=== PATIENT | female | born 1970 | race Caucasian/White ===

== ENCOUNTER 2017-06-01 17:35 | Inpatient (IN) | payer OTHER ==
[~2017-06-01] VITALS: Ht 162.6 cm; Wt 54.4 kg
--- NOTE | 2017-06-01 18:06 | ED GENERAL ADULT ---
History of Present Illness General Chief Complaint: ETOH/Drug Related Complaint Stated Complaint: REQUESTING HIGHWATCH Source: patient Exam Limitations: no limitations Vital Signs & Intake/Output Vital Signs & Intake/Output Vital Signs Date Time Temp Pulse Resp B/P B/P Pulse O2 O2 Flow FiO2 Mean Ox Delivery Rate 06/02 0203 98.9 94 20 119/70 06/02 0203 98.9 94 20 119/70 99 Room Air 06/01 2358 98.9 88 18 110/65 06/01 2358 98.9 88 22 110/65 99 Room Air 06/01 2124 98.8 88 18 146/82 06/01 2123 98.8 88 18 146/82 100 Room Air 06/01 160/90 99 Room Air 06/01 20 160/90 06/01 1850 97.6 108 18 155/98 06/01 1836 97.6 108 18 155/98 98 Room Air 06/01 1741 97.5 106 18 160/98 98 Room Air ED Intake and Output 06/02 0000 06/01 1200 Intake Total 150 Output Total 200 Balance -50 Intake, Oral 150 Output, Urine 200 Patient 120 lb Weight Weight Reported by Patient Measurement Method Allergies Coded Allergies: No Known Allergies (06/01/17) Triage Note: PT SENT IN BY HIGHWATCH FOR CLEARANCE. PT LAST DRANK LAST EVENING. PT DENIES DRUG USE. Triage Nurses Notes Reviewed? yes Onset: Gradual Duration: worse persistent since (sveral months) Timing: recent history Injury Environment: home Severity: moderate No Modifying Factors: none : No Patient currently breastfeeds: No HPI: Patient is a 46-year-old female presenting to the emergency department for clearance prior to going to [facility] for alcohol detox. Patient reports that she drinks "a few vodka lemonade" 2-3 times a week. Patient reports that her family is concerned and wants her to get detoxed. No history of withdrawal seizures. Patient does report that she feels anxious when she does not drink. Her last drink was yesterday evening. Denies any drug use. Positive cigarette smoker daily. Denies any suicidal or homicidal ideation. Denies any hallucinations. No nausea or vomiting fevers or chills chest pain or shortness of breath. (Joshua MORENO,Yue) Past History Travel History Traveled to [place] past 21 day No Medical History Any Pertinent Medical History? see below for history Surgical History Surgical History: non-contributory Psychosocial History What is your primary language Nepalese Tobacco Use: Current Daily Use Daily Tobacco Use Amount/Type: => 5 Cigarettes daily ETOH Use: alcoholic Illicit Drug Use: denies illicit drug use Family History Hx Contributory? No (Yue Sung) Review of Systems Review of Systems Constitutional: Reports: no symptoms. Comments Review of systems: See HPI, All other systems negative. Constitutional, no chills fever or weight loss HEENT: No visual changes no sore throat no congestion Cardiovascular: No chest pain ,palpitation , orthopnea or ankle swelling Skin, no jaundice no rashes Respiratory: No dyspnea cough sputum or hemoptysis GI: No nausea no vomiting : No dysuria No hematuria Muscle skeletal: no back pain, no neck pain, Neurologic: No numbness no confusion, no headaches Psych: Positive stress and anxiety Heme/endocrine: No bruising no bleeding no polyuria or polydipsia Immunology: No splenectomy or history of AIDS (Yue Sung) Physical Exam Physical Exam General Appearance: well developed/nourished, no apparent distress, alert, awake , comfortable Comments: Well-developed well-nourished person in no acute distress HEENT: Atraumatic ,normocephalic. Neck: Normal inspection Back: Nontender Cardiovascular: Regular rate and rhythms no murmurs rubs or gallops, normal JVP Respiratory: Chest nontender. No respiratory distress.breath sounds clear to auscultation bilaterally Extremity: No edema Neuro: Alert oriented x3 Skin: No appreciable rash on exposed skin, skin is warm and dry. Psych: depressed mood, memory and judgment is normal. Core Measures ACS in differential dx? No CVA/TIA Diagnosis: No Sepsis Present: No Sepsis Focused Exam Completed? No (Yue Sung) Progress Differential Diagnoses I considered the following diagnoses in my evaluation of the patient: Alcohol intoxication, alcohol abuse, polysubstance abuse, generalized anxiety disorder, major depressive disorder Plan of Care: Orders Procedure Date/time Status Regular Diet 06/02 B Active Patient Data 06/02 033 Active Add-on Test (ER Only) 06/02 322 Active OXYGEN SETUP (GEN) 06/02 319 Active Saline Lock 06/02 319 Active Admit to inpatient 01/21 0320 Active Vital Signs 01/21 0320 Active Activity/Ambulation 06/02 0320 Active Code Status 06/02 0320 Active Add-on Test (ER Only) 06/02 0316 Active ARTERIAL BLOOD GAS (GEN) 06/02 0255 Complete MIXED VENOUS BLOOD GAS (GEN) 06/02 0200 Active COMPREHENSIVE METABOLIC PANEL 06/02 0200 Complete LACTIC ACID 06/02 0141 Complete Lab Add-on Test 06/02 UNK Active LACTIC ACID 06/01 2241 Complete Add-on Test (ER Only) 06/01 2233 Active MIXED VENOUS BLOOD GAS (GEN) 06/01 2047 Active Add-on Test (ER Only) 06/01 1947 Active Telemetry/Data Warehouse Manager 06/01 1947 Active EKG 06/01 1947 Active URINALYSIS 06/01 1945 Complete SERUM OSMOLALITY 06/01 1909 Active ACETONE 06/01 1909 Active Intake & Output 06/01 1843 Active CIWA 06/01 1805 Active URINE DRUG SCREEN FOR ER ONLY 06/01 1805 Complete MAGNESIUM 06/01 1805 Active LIPASE 06/01 1805 Active ETHANOL 06/01 1805 Active COMPREHENSIVE METABOLIC PANEL 06/01 1805 Active CBC WITHOUT DIFFERENTIAL 06/01 1805 Complete Current Medications Sig/Henry Start time Last Medication Dose Stop Time Status Admin Lactated Ringer's 1,000 ML Q6H 06/02 0330 UNVr 06/02 (Lactated Ringers) 0328 Ondansetron HCl 4 MG ONCE ONE 06/02 0330 UNVr 06/02 (Zofran) 06/02 033 0332 Sodium Bicarbonate 100 MEQ CONTINOUS INFUSION 06/02 0300 CANr (Sodium Bicarbonate 8.4%) Dextrose/Water 1,000 ML (D5W 1000) Nicotine 21 MG DAILY 06/01 192 UNVr 06/01 (Nicoderm) 194 Laboratory Tests 06/02/17 0305: pH 7.21 *L, pCO2 16 L, pO2 125 H, HCO3 6.3 L, ABG O2 Sat (Measured) 97.0, P- 50 (Temp Corrected) Y, Carboxyhemoglobin 0.1 L, O2 Concentration % RA, Temperature 98.9, Phlebotomy Draw Site RIGHT RADIAL 06/02/17 0204: Lactic Acid 0.6 L 06/02/17 0204: Anion Gap 24 H, Estimated GFR > 60, BUN/Creatinine Ratio 7.5, Glucose 72, Calcium 7.2 L, Total Bilirubin 0.6, AST 59 H, ALT 52, Alkaline Phosphatase 74, Total Protein 6.4, Albumin 3.7, Globulin 2.7, Albumin/Globulin Ratio 1.4 06/01/17 230: Lactic Acid 1.0 06/01/172104: Bicarbonate Actual 10 L, Mixed VBG pH 7.14 L, Mixed VBG pCO2 29 L, Mixed VBG O2 Saturation 42, Carboxyhemoglobin 1.4 L 06/01/171944: Urine Opiates Screen < 100.00, Methadone Screen < 40, Barbiturate Screen < 60, Ur Phencyclidine Scrn < 6.00, Amphetamines Screen 137, U Benzodiazepines Scrn < 85, Urine Cocaine Screen < 50, Urine Cannabis Screen < 5.00, Urinalysis LIGHT H , Urine Color YEL, Urine Clarity CLEAR, Urine pH 6.0, Ur Specific Delta >= 1.030, Urine Protein 100 H, Urine Ketones >=80, Urine Nitrite NEG, Urine Bilirubin NEG@ICTO, Urine Urobilinogen 0.2, Ur Leukocyte Esterase NEG, Ur Microscopic SEDIMENT EXAMINED, Urine RBC RARE, Urine WBC RARE, Ur Epithelial Cells FEW, Urine Bacteria FEW H, Hyaline Casts RARE H, Urine Hemoglobin SMALL H, Urine Glucose NEG 06/01/171908: Anion Gap 38 H, Estimated GFR > 60, BUN/Creatinine Ratio 11.7, Glucose 93, Serum Osmolality 309 H, Calcium 9.9, Magnesium 2.1, Total Bilirubin 0.8, AST 98 H, ALT 70 H, Alkaline Phosphatase 110, Total Protein 9.8 H, Albumin 6.0 H, Globulin 3.8, Albumin/Globulin Ratio 1.6, Lipase 166, CBC w Diff NO MAN DIFF REQ , RBC 3.99 L, MCV 105.3 H, MCH 34.9 H, RDW 15.4 H, MPV 8.5, Gran % 83.2 H, Lymphocytes % 8.5 L, Monocytes % 8.0, Eosinophils % 0.1, Basophils % 0.2, Absolute Granulocytes 7.4 H, Absolute Lymphocytes 0.8 L, Absolute Monocytes 0.7 H, Absolute Eosinophils 0, Absolute Basophils 0, PUBS MCHC 33.1, Serum Alcohol < 10.0, Acetone Level Pending Initial ED EKG: NSR (91 bpm) Hand-Off Endorsed To: Magan Epperson MD Endorsed Time: 99 Pending: labs (Yue Sung) Departure Departure Condition: Stable Referrals: Aman ARREDONDO,Gamaliel Olsen (PCP/Family) Departure Forms: Customer Survey General Discharge Information (Yue Sung) Departure Time of Disposition: 324 Disposition: STILL A PATIENT Clinical Impression Primary Impression: Metabolic acidosis with increased anion gap and accumulation of organic acids Secondary Impressions: Alcohol withdrawal Qualifiers: Complication of substance-induced condition: with unspecified complication Qualified Code: F10.239 - Alcohol dependence with withdrawal, unspecified Hyperkalemia Admission Note Spoke With: Ibis Galvan MD Documentation of Exam: Documentation of any treatments & extenuating circumstances including Concerns Regarding Discharge (functional status, medication knowledge or non-compliance, living conditions, etc.) that warrant an admission rather than observation: Serial lab exam medication adjustment benzodiazepine to prevent alcohol withdrawal toxic alcohol evaluation continuing care discharge PA/C++ QUANT DEVELOPER Co-Sign Statement Statement: ED Attending supervision documentation- x I saw and evaluated the patient. I have also reviewed all the pertinent lab results and diagnostic results. I agree with the findings and the plan of care as documented in the PA's/C++ QUANT DEVELOPER's documentation. Severe metabolic / alcoholic ketoacidosis. [] I have reviewed the ED Record and agree with the PA's/C++ QUANT DEVELOPER's documentation. [] Additions or exceptions (if any) to the PAs/C++ QUANT DEVELOPER's note and plan are summarized below: [] (Magan Epperson MD) Critical Care Note Critical Care Note Critical Care Time: non-applicable (Yue Sung) Critical Care Note Critical Care Time: 30-74 min (40) (Magan Epperson MD)
[2017-06-01 18:50] VITALS: BP 155/98
[2017-06-01 19:19] LABS: ABSOLUTE BASOPHIL COUNT 0 /CUMM (0.0-0.2); ABSOLUTE EOSINOPHIL COUNT 0 /CUMM (0.0-0.7); ABSOLUTE GRANULOCYTE CT 7.4 /CUMM (1.4-6.5); ABSOLUTE LYMPH COUNT 0.8 /CUMM (1.2-3.4); ABSOLUTE MONOCYTE COUNT 0.7 /CUMM (0.10-0.60); BASOPHIL % 0.2 % (0.0-2.0); EOSINOPHIL % 0.1 % (0-5); MEAN CORPUSCULAR HGB 34.9 PG (27.0-31.0); MEAN CORPUSCULAR HGB CONC 33.1 G/DL (33.0-37.0); MEAN CORPUSCULAR VOLUME 105.3 FL (81.0-99.0); MEAN PLATELET VOLUME 8.5 FL (7.4-10.4); PLATELET COUNT 172 /CUMM (130-400); RBC DISTRIBUTION WIDTH 15.4 % (11.5-14.5); RED BLOOD CELL CT 3.99 /CUMM (4.20-5.40); WHITE BLOOD CELL COUNT 8.9 /CUMM (4.8-10.8)
[2017-06-01 19:37] LABS: GRANULOCYTE % 83.2 % (42.2-75.2)
[2017-06-01 20:06] VITALS: BP 160/90
[2017-06-01 21:24] VITALS: BP 146/82
[2017-06-01 23:58] VITALS: BP 110/65
[2017-06-02 02:03] VITALS: BP 119/70
[2017-06-02 04:07] VITALS: BP 111/63
--- NOTE | 2017-06-02 05:08 | History & Physical ---
Vidal ARZATE,[facility] 06/02/17 0507: General Information and HPI MD Statement: I have seen and personally examined DUNIA HASSAN and documented this H&P. The patient is a 46 year old F who presented with a patient stated chief complaint of [alcohol detox]. Source of Information: patient Exam Limitations: no limitations History of Present Illness: Ms. Hassan is a 46-year-old lady with past medical history significant for optic disc tumor status post resection, alcohol abuse and insight was sent in to the ER from [facility] for alcohol detox. According to the patient, she was sent to [facility] by her family for detox, but was sent to the [place] ER for clearance. States she drinks 4-5 days per week, usually 3 glasses of vodka per day, her last drink was 2 glasses of Vodka last night. She reports having vomiting starting this Saturday because of increased anxiety, had 3 episodes of vomiting today, but denies any blood in the vomitus. Also has not been eating for the past 2 days. Denies any fever/chills , diarrhea, abdominal pain, cough, sputum production, chest, shortness breath, palpitations, urinary symptoms or blood in stool/urine. Also denies any recent hospitalization, withdrawal seizures or history of delirium tremens. Allergies/Medications Allergies: Coded Allergies: No Known Allergies (06/01/17) Past History Travel History Traveled to [place] past 21 day No Medical History Psychiatric: alcohol dependence, anxiety, depression Surgical History Surgical History: non-contributory Past Family/Social History Psychosocial History ETOH Use: alcoholic Illicit Drug Use: denies illicit drug use Functional Ability ADLs Independent: dressing, eating, toileting, bathing. Ambulation: independent IADLs Independent: shopping, housework, finances, food prep, telephone, transportation , medication admin. Review of Systems Review of Systems Constitutional: Reports: no symptoms. EENTM: Reports: no symptoms. Cardiovascular: Reports: no symptoms. Respiratory: Reports: no symptoms. GI: Reports: vomiting. Genitourinary: Reports: no symptoms. Musculoskeletal: Reports: no symptoms. Skin: Reports: no symptoms. Neurological/Psychological: Reports: no symptoms. Hematologic/Endocrine: Reports: no symptoms. Immunologic/Allergic: Reports: no symptoms. All Other Systems: Reviewed and Negative Exam & Diagnostic Data Last 24 Hrs of Vital Signs/I&O Vital Signs Date Time Temp Pulse Resp B/P B/P Pulse O2 O2 Flow FiO2 Mean Ox Delivery Rate 06/02 040 99.0 91 18 111/63 06/02 0407 99.0 91 18 111/63 98 Room Air 06/02 0203 98.9 94 20 119/70 06/02 0203 98.9 94 20 119/70 99 Room Air 06/01 2358 98.9 88 18 110/65 06/01 2358 98.9 88 22 110/65 99 Room Air 06/01 2124 98.8 88 18 146/82 06/01 2123 98.8 88 18 146/82 100 Room Air 06/01 2006 92 20 160/90 99 Room Air 06/01 2005 92 20 160/90 06/01 1850 97.6 108 18 155/98 06/01 1836 97.6 108 18 155/98 98 Room Air 06/01 1741 97.5 106 18 160/98 98 Room Air Intake & Output 06/02 0800 06/02 0000 06/01 1600 Intake Total 150 Output Total 200 Balance -50 Intake, Oral 150 Output, Urine 200 Patient 120 lb Weight Weight Reported by Patient Measurement Method Physical Exam General Appearance Alert, Oriented X3, Cooperative, No Acute Distress Skin No Rashes, No Breakdown HEENT Atraumatic, PERRLA, EOMI, Dry Mucous Membranes, Left eye mydriasis, left eye more protuberant than right Neck Supple, No JVD, No thryomegaly Cardiovascular Regular Rate, Normal S1, Normal S2 Last 24 Hrs of Labs/Wade: Laboratory Tests 06/02/17 0305: pH 7.21 *L, pCO2 16 L, pO2 125 H, HCO3 6.3 L, ABG O2 Sat (Measured) 97.0, P- 50 (Temp Corrected) Y, Carboxyhemoglobin 0.1 L, O2 Concentration % RA, Temperature 98.9, Phlebotomy Draw Site RIGHT RADIAL 06/02/17203: Lactic Acid 0.6 L 06/02/17 020: Anion Gap 24 H, Estimated GFR > 60, BUN/Creatinine Ratio 7.5, Glucose 72, Calcium 7.2 L, Total Bilirubin 0.6, AST 59 H, ALT 52, Alkaline Phosphatase 74, Total Protein 6.4, Albumin 3.7, Globulin 2.7, Albumin/Globulin Ratio 1.4 06/01/17 2300: Lactic Acid 1.0 06/01/172104: Bicarbonate Actual 10 L, Mixed VBG pH 7.14 L, Mixed VBG pCO2 29 L, Mixed VBG O2 Saturation 42, Carboxyhemoglobin 1.4 L 06/01/171944: Urinalysis LIGHT H, Urine Color YEL, Urine Clarity CLEAR, Urine pH 6.0, Ur Specific [place] >= 1.030, Urine Protein 100 H, Urine Ketones >=80, Urine Nitrite NEG, Urine Bilirubin NEG@ICTO, Urine Urobilinogen 0.2, Ur Leukocyte Esterase NEG, Ur Microscopic SEDIMENT EXAMINED, Urine RBC RARE, Urine WBC RARE, Ur Epithelial Cells FEW, Urine Bacteria FEW H, Hyaline Casts RARE H, Urine Hemoglobin SMALL H, Urine Glucose NEG 06/01/171944: Urine Opiates Screen < 100.00, Methadone Screen < 40, Barbiturate Screen < 60, Ur Phencyclidine Scrn < 6.00, Amphetamines Screen 137, U Benzodiazepines Scrn < 85, Urine Cocaine Screen < 50, Urine Cannabis Screen < 5.00, Ur Random Creatinine Pending, Ur Random Sodium Pending, Ur Random Potassium Pending, Fraction Sodium Excret Pending 06/01/171908: Anion Gap 38 H, Estimated GFR > 60, BUN/Creatinine Ratio 11.7, Glucose 93, Serum Osmolality 309 H, Calcium 9.9, Phosphorus 3.9, Magnesium 2.1, Total Bilirubin 0.8, AST 98 H, ALT 70 H, Alkaline Phosphatase 110, Total Protein 9.8 H, Albumin 6.0 H, Globulin 3.8, Albumin/Globulin Ratio 1.6, Lipase 166, Vitamin B12 Pending, Folate Pending, CBC w Diff NO MAN DIFF REQ, RBC 3.99 L, MCV 105.3 H, MCH 34.9 H, RDW 15.4 H, MPV 8.5, Gran % 83.2 H, Lymphocytes % 8.5 L, Monocytes % 8.0, Eosinophils % 0.1, Basophils % 0.2, Absolute Granulocytes 7.4 H, Absolute Lymphocytes 0.8 L, Absolute Monocytes 0.7 H, Absolute Eosinophils 0, Absolute Basophils 0, PUBS MCHC 33.1, Acetaminophen < 10.0 L, Serum Alcohol < 10.0, Acetone Level POSITIVE AT 1:16 DIL Diagnostic Data EKG Results Sinus rhythm QTc 473 Assessment/Plan Assessment: Ms. Hassan is a 46-year-old lady with past medical history significant for optic disc tumor status post resection, alcohol abuse and insight was sent in to the ER from [facility] for alcohol detox. A/P; 1. Anion gap metabolic acidosis; likely secondary to starvation ketosis. Patient has a pH of 7.21, an AG of 38 with a serum osmolar gap of 21, serum glucose level of 92, positive serum acetone levels, BUN of 7 and lactic acid level of 0.6. Serum toxicology screen was negative. - We will admit the patient to telemetry floor. - Continuous cardiac monitoring for any arrhythmias. - Continue gentle IV hydration with lactated Ringer. - Repeat ABGs and BMP in 4 hours, if no improvement and the pH would consider nephrology consult. 2. Alcohol detox; - IV Ativan per [facility] protocol. - By mouth Ativan 2 mg every 8 hours. -Check thiamine and folate levels. - By mouth folic acid and High dose thiamine thiamine initially(300 mg every 6 hours initially, followed by 100 mg daily). - Magnesium and phosphorus levels are within normal range. - Psych and social work consult. 3. Macrocytic anemia; - We'll check B12 and folate levels. - Replete as needed. 4. History of peptic ulcer; - Continue PPI. DVT prophylaxis; subcutaneous Lovenox Patient is full code As Ranked By This Provider Problem List: 1. Metabolic acidosis with increased anion gap and accumulation of organic acids 2. Alcohol withdrawal Qualifiers Complication of substance-induced condition: with unspecified complication Qualified Code: F10.239 - Alcohol dependence with withdrawal, unspecified Core Measures/Misc (01/27) Acute Coronary Syndrome ACS Diagnosis: No Congestive Heart Failure Congestive Heart Failure Diagnosis No Cerebrovascular Accident CVA/TIA Diagnosis: No VTE (View Protocol) VTE Risk Factors Age>40 No Mechanical VTE Prophylaxis d/t N/A MechProphylax Ordered No VTE Pharm Prophylaxis d/t NA PharmProphylax ordered Sepsis (View protocol) Sepsis Present: No Christophe Ugalde MD 06/02/17 0527: Resident Review Statement Resident Statement: examined this patient, discussed with event planning intern, agreed with event planning intern Other Findings: This is a 46 yo female with PMH of (what sounds like a non-malignant) 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 She states that her last drink was the night before and was two servings of vodka. She claims to drink 4-5 times a week each time drinking 2-3 shots of vodka. She has never been hospitalized for alcohol-related problems, denies history of withdrawal seizures or DTs. Denies ICU admission for alcohol. Last time she was hospitalized was at [facility] about 5 years ago for coffee-ground emesis. Patient states that at that time she was found to have a peptic ulcer which was managed medically. At this time she takes no meds, no allergies and does not follow with a PCP. She does endorse that she has been vomiting since last Saturday. She has about one episode of emesis per day. It is not associated with nausea. However, today she has vomited 3 times. Patient states that the episodes seem to correlate with her anxiety. She denies any hematemesis, or coffee grounds. She smokes a pack of cigarettes per day but denies any illicit drugs or IV drug abuse. She is currently unemployed but used to work as a restaurant shift supervisor. Denies any suicidal or homicidal ideation but does endorse depression. Physical exam: HEENT: L, pupil > R. The l. eye is more protuberant than the righ. Some nystagmus in l. eye. Both pupils eactive to light. When asked pt to look above seh felt dizzy and nauseous. Cardiovascular: 2/6 systolic murmur in parasternal area Skin: no erythema, rash or wounds present. Respiratory:CTAB GI: BSX4, No tenderness on palpation. Cannot appreciate enlarged liver to palpation EXT: no edema. +pulses Labs: CBC notable for elevated MCV of 105.3. BEP shows potassium 5.4, chloride 94, bicarbonate 8, anion gap 38 with serum osmolality 309. ABG: PH 7.21, PCO2 16, bicarbonate 6.3. AST 98. ALT 70. Calcium and phosphorus within normal limits. Urine shows elevated protein, over 80 ketones. Tox screen shows positive acetone level, negative serum alcohol, negative for everything else. 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 Upon workup in emergency department, patient was found have significant anion metabolic acidosis likely secondary to a combo of alcohol and starvation ketosis. As such, decision was made to admit patient to the telemetry floor for further workup and monitoring. Plan: 1. Anion gap metabolic acidosis: Patient has pH 7.2, with a gap of 38 and a bicarbonate of 7. Her serum osmolality 309. Ceballos formula and delta gap not indicative of other concominant acid-base disturbances. Differential diagnosis in this patient includes alcohol, lactic acid, other ingestion. Did not seem like a DKA. Her tox screen is negative. She has an osmolal gap of 22. While in osmole gap greater than 10 contiguous ingestion it can also be elevated in lactic acidosis, DKA and alcoholic ketoacidosis. Interestingly, patient states that she has episodes of vomiting, one of which was witnessed in the ED. Normally, vomiting would be accompanied by metabolic alkalosis but currently there is no evidence. Concern for toxic ingestions is present but pt denies any ingestion. No SI/HI. An OG is nonspecific and can be elevated in lactic acidosis , DKA and in alcoholic ketoacidosis. * Repeat BEP in a.m. * Repeat ABG in a.m. * IV fluids * Tox screen * Urine lytes * Monitor osmolal gap--> Recheck in AM if un-resolving send out the toxic alcohols * If pt worsens consider a nephrology consult * Check lactic acid * Monitor on tele for arrhythmias 2. Etoh Detox: Pt denies any alcohol withdrawl history. Given severity of metabolic derangements and that pt is likely drinking more than she indicates there is concern for significant withdrawl in this pt. * CIWA * Ativan 2Q6 ordered--> Reassess in AM * PRN CIWA ordered * Social work consult placed * Consider psych consult if necessary in AM * Hi-dose thiamine * B12 * Folate * Multivite 3. Macrocytosis: Likely 2/2 etoh. * check b12 * check folate 4. Transamanitis: Mildly elevated LFT. Likely 2/2 etoh. * Con't monitor 5. Smoking: Pt smokes PPD. * Nicotine patch 6. Hx of Peptic ulcer: Supposedly had coffee ground emesis at [facility] due to PUD. * PPI * Consider obtaining records in AM. Chem dvt ppx Full code Regular diet.
--- NOTE | 2017-06-02 05:49 | Admission Certification ---
Admission Certification Certification Statement - As attending physician, I certify that at the time of - admission, based on clinical presentation, severity of - symptoms, need for further diagnostic testing and - therapeutic interventions, and risk of adverse outcomes - without in-hospital treatment, in my clinical assessment, - this patient requires an acute hospital stay for a minimum - of two nights or longer. I have also considered psychsocial - factors such as support system, advanced age, financial - issues, cognitive issues, and failed out-patient treatments, - past re-admission history, safety of patient, and lack of - compliance as applicable. Specific rationale supporting this admission is: severe metabolic acidosis, alcohol withdrawal
--- NOTE | 2017-06-02 05:50 | PN- Att Addend ---
Attending Addendum Attending Brief Note CC: Patient was sent from [facility] for medical clearance PMH: Alcoholism, optic disc tumor left eye Patient was suggested by her family for detox and rehabilitation so she went to [facility]. From there she was suggested to go to ER for clearance. She drinks 3 -4 glasses of vodka, 4-5 times a week for her severe anxiety and depression and low self estimated. She denies suicidal ideation or attempt. Denies any other drug abuse or any ingestions. She has been not eating or drinking since last 2 days, vomited 3 times yesterday, nonbloody, no diarrhea, no abdominal pain. Her last drink was last night, 2 glasses of vodka. She does not have any respiratory discomfort, distress, cough or expectoration, urinary symptoms. Never had alcohol related seizures, never hospitalized for alcohol detox. She underwent left eye surgery for optic disc tumor Vitals: Afebrile, pulse 106, RR 18, blood pressure 155/98, saturating well on room air. On exam: A O 3, cooperative, no acute distress, neck supple, JVD normal, no lymphadenopathy, mucosa moist, pupils dilated, round reactive bilaterally, vision intact, no nystagmus, cranial nerves intact, left eye more protruding been tried, no focal neurological deficit, no dependent edema, no obvious skin rashes or inflammation CVS: S1-S2, RRR. RS: Clear to auscultate bilaterally. Abdomen: Soft, NT, ND, bowel sounds present. Labs: WBC 8.9, hemoglobin 13.9, hematocrit 42.0, platelets 172, MCV 105.3, neutrophils 83%, sodium 140, potassium 4.5, chloride 94, bicarbonate 8, BUN 7, creatinine 0.6, anion gap 38, glucose 93, calcium 9.9, AST 98, ALT 70, alkaline phosphatase 110, lipase 166, lactate 1.0, CT and also was 309 AB.24/16/125/6.3 on room air UA positive for ketones, negative for glucose U tox unremarkable, alcohol less than 10 ECG: No acute changes Assessment and plan 46-year-old female with significant alcohol history and history of left optic disc tumor status post removal presented in ER from [facility] for medical clearance, last drink last night, 2 glasses of vodka. Patient has not been eating since last 2-3 days, has to 3 episodes of vomiting yesterday nonbloody, no diarrhea, no abdominal pain, no other ingestions, no headache, no seizure history, no suicidal ideation. Patient found to have significant metabolic acidosis with anion gap, significant macrocytosis, low BUN and normal lactate. Patient was aggressively hydrated with normal saline, even though anion gap improved from 38 > 24, patient is significantly still acidotic, now more hyperchloremic. Patient has urine ketone positive and acetone positive, low glucose, negative lactate, all goes in favor of starvation ketosis. Patient has mildly elevated osmolar gap, this mild osmolar gap can be explained by ketoacidosis. Interestingly patient's all called level is negative. Less likely any RTA, given patient has anion gap. We'll try to hydrate her with Ringer's lactate for more pH neutral solution, repeat BMP and ABG + Significant metabolic acidosis with high anion gap probably secondary to starvation ketosis + Alcohol withdrawal - Admit to telemetry - Continuous telemetry monitoring for any arrhythmias related to acidosis - Continue gentle hydration with lactated Ringer after 1 L bolus of lactated Ringer - Repeat ABG and BMP 4 hours from previous, for anion gap, acidosis. : Consider nephro consult if persistently acidotic - Nicotine patch - Thiamine 200 mg by mouth every 6 hourly 3 times followed by 100 mg by mouth daily dose - Continue scheduled Ativan PO 2 mg milligram every 8 hours - Continue when necessary Ativan according to CIWA protocol - Check vitamin B12, folate, - PO folic acid - Check magnesium and phosphorus, today and tomorrow, replace if low - Low threshold to ICU transfer if severely agitated : I think patient drinks more than what she is mentioning - DVT prophylaxis - Adequate pain control
[2017-06-02 06:43] VITALS: BP 128/72
[2017-06-02 08:29] LABS: ABSOLUTE BASOPHIL COUNT 0 /CUMM (0.0-0.2); ABSOLUTE EOSINOPHIL COUNT 0 /CUMM (0.0-0.7); ABSOLUTE MONOCYTE COUNT 0.9 /CUMM (0.10-0.60); EOSINOPHIL % 0.2 % (0-5); MEAN CORPUSCULAR HGB 35.2 PG (27.0-31.0); MEAN CORPUSCULAR HGB CONC 33.2 G/DL (33.0-37.0); RED BLOOD CELL CT 3.16 /CUMM (4.20-5.40)
[2017-06-02 08:36] LABS: ABSOLUTE GRANULOCYTE CT 5.8 /CUMM (1.4-6.5); ABSOLUTE LYMPH COUNT 0.5 /CUMM (1.2-3.4); BASOPHIL % 0.1 % (0.0-2.0); GRANULOCYTE % 79.3 % (42.2-75.2); MEAN CORPUSCULAR VOLUME 106.2 FL (81.0-99.0); MEAN PLATELET VOLUME 9.5 FL (7.4-10.4); PLATELET COUNT 128 /CUMM (130-400); RBC DISTRIBUTION WIDTH 14.9 % (11.5-14.5); WHITE BLOOD CELL COUNT 7.3 /CUMM (4.8-10.8)
[2017-06-02 08:39] LABS: HEMATOCRIT 33.6 % (37-47)
[2017-06-02 11:58] VITALS: BP 110/60
--- NOTE | 2017-06-02 14:19 | PN- Att Addend ---
Attending Addendum Attending Brief Note Ms. Hassan is a 46 y/o female who was sent from [facility] for medical clearance has a PMH of severe alcoholism. She has been not eating or drinking since last 2 days, vomited 3 times the day before admission, nonbloody, no diarrhea, no abdominal pain. Her last drink was last night, 2 glasses of vodka. On examination patient denies any complaints of chest pain abdominal pain diarrhea. Does have symptoms of nausea however has not thrown up. Assessement and Plan 1. Severe anion gap metabolic acidosis - likely secondary to starvation/ alcoholic ketoacidosis. PH and PCO2 levels are improving, bicarbonate level still about the same we'll repeat the basic electrolyte panel this evening. Obtain nephrology recommendations. Patient started eating and drinking. Will initiate on dextrose rich fluids - may need IV insulin due to hyperglycemia from Dextrose Monitor response by narrowing of anion gap BEP Q 4 hrly and Phosphate levels to be monitored carefully IV Thiamine - Appreciate nephrology recommendations Transfer to ICU 2. Alcohol intoxication/ withdrawal - on Ativan taper
--- NOTE | 2017-06-02 14:37 | Cons- Nephrology ---
General Information and HPI Consulting Request Date of Consult: 06/02/17 Requested By: Ibis Galvan MD History of Present Illness: Ms. Hassan is a 46 yo F with long history of ETOH. She was to go to an inpatient detox program but was first sent to [facility] ED for clearance for outpt detox. In the ED she was found to have severe anion gap metabolic acidosis with positive serum ketones. She was though to be dehydrated and admitted to telemetry and give 2L RL. She admits to poor po intake and regular alcohol use. Allergies/Medications Allergies: Coded Allergies: No Known Allergies (06/01/17) Review of Systems Review of Systems: As in HPI otherwise negative Past History Travel History Traveled to [place] past 21 day No Medical History Blood Transfusion Hx: No Psychiatric: alcohol dependence, anxiety, depression Surgical History Surgical History: non-contributory Psychosocial History Where Do You Live? Home Services at Home: None Smoking Status: Current Everyday Smoker ETOH Use: alcoholic Illicit Drug Use: denies illicit drug use Functional Ability ADLs Independent: dressing, eating, toileting, bathing. Ambulation: independent IADLs Independent: shopping, housework, finances, food prep, telephone, transportation , medication admin. Exam & Diagnostic Data Vital Signs and I&O Ill appearing F NAD 110/60 P 94 T 97.8 Skin neg rash Eyes n Vital Signs Date Time Temp Pulse Resp B/P B/P Pulse O2 O2 Flow FiO2 Mean Ox Delivery Rate 06/02 1158 97.8 94 20 110/60 06/02 0800 Room Air Room Air 06/02 0643 98.7 93 18 128/72 99 Room Air 06/02 0407 99.0 91 18 111/63 06/02 0407 99.0 91 18 111/63 98 Room Air 06/02 0203 98.9 94 20 119/70 06/02 0203 98.9 94 20 119/70 99 Room Air 06/018 98.9 88 18 110/65 06/01 2357 98.9 88 22 110/65 99 Room Air 06/01 2123 98.8 88 18 146/82 06/01 2122 98.8 88 18 146/82 100 Room Air 06/01 2006 92 20 160/90 99 Room Air 06/01 2005 92 20 160/90 06/01 1850 97.6 108 18 155/98 06/01 1836 97.6 108 18 155/98 98 Room Air 06/01 1741 97.5 106 18 160/98 98 Room Air Intake & Output 06/02 1600 06/02 0400 06/01 1600 06/01 0400 05/31 1600 05/31 0400 Intake Total 1200 150 Output Total 200 Balance 1200 -50 Intake, IV 1000 Intake, Oral 200 150 Output, Urine 200 Patient 120 lb 120 lb Weight Weight Reported by Patient Reported by Patient Measurement Method Results Pertinent Lab Results: 7.28 / 20 / 134 Hg 11.1 140/ 109 / 3 / 4.0 / 7 / 0.4\ Assessment/Plan Assessment/Recommendations Assessment: 46 yo F with poor po intake, high alcohol intake and likely virtually no carbohydrate or protein intake resulting in profound life treatening ketoacidosis. She has classic alcoholic ketoacidosis. Treatment providing glucose to allow clearing of her ketoacidosis and thamine given likelihood of vitamin deficiency and risk of Wernicke's. These patients are usually also profoundly phosphate and potassium deficient. The mainstay of treatment is first turn off the cause of her ketoacidosis. This involves glucose and insulin. She is not diabetic and likely is able to generate insulin.\ 1) needs constant glucose infusion 2) If serum glucose rises do not reduce glucose infusion but add insulin clamp 3) Check potassium /phos 2-3 times/day and replace aggressively. as glucose becomes available this get phosphorylated and can cause a precipitous drop in phosphorus resulting in respiratory arrest. 4) Thiamin IV. Close observation. Consider ICU admission for above management. Pt will require close monitoring . Chase Canales MD Recommendations: .
--- NOTE | 2017-06-02 15:18 | Event Note ---
Event Note Event Note: Discussed with the seating and mobility technologist and updated Dr. resendiz 1. Transfer the patient to the ICU 2. Send blood for Methyl alcohol and ethelene glycol to [facility] follow up 3. Treat as ketoacidosis by IV fluids, IV insulin, regular follow-up with electrolytes panel every 4 hourly 4. Started patient on IV fluid 5% dextrose/1/2 NS -125 mL per hour, target blood sugar [id number] and if it goes up than start IV insulin and follow-up with the seating and mobility technologist.Do not stop IV drip. 5. Please follow-up with BEP, magnesium, calcium, phosphorus
[2017-06-02 20:00] VITALS: BP 126/70
[2017-06-02 22:00] VITALS: BP 104/72
[2017-06-03] VITALS (11 sets, daily range): BP systolic 95–118; BP diastolic 62–80
[2017-06-03 05:24] LABS: ABSOLUTE BASOPHIL COUNT 0 /CUMM (0.0-0.2); ABSOLUTE EOSINOPHIL COUNT 0.1 /CUMM (0.0-0.7); ABSOLUTE GRANULOCYTE CT 3.1 /CUMM (1.4-6.5); ABSOLUTE MONOCYTE COUNT 0.7 /CUMM (0.10-0.60); BASOPHIL % 0.5 % (0.0-2.0); EOSINOPHIL % 2.2 % (0-5); GRANULOCYTE % 62.5 % (42.2-75.2); HEMATOCRIT 33.7 % (37-47); MEAN CORPUSCULAR HGB 35.2 PG (27.0-31.0); MEAN CORPUSCULAR HGB CONC 33.8 G/DL (33.0-37.0); MEAN CORPUSCULAR VOLUME 104.1 FL (81.0-99.0); MEAN PLATELET VOLUME 9.1 FL (7.4-10.4); PLATELET COUNT 118 /CUMM (130-400); RBC DISTRIBUTION WIDTH 15.3 % (11.5-14.5); RED BLOOD CELL CT 3.24 /CUMM (4.20-5.40)
--- NOTE | 2017-06-03 07:44 | Cons- CRCU ---
Palmira Vizcaino 06/03/17 0744: General Information and HPI History of Present Illness: Ms Hassan was sent from [facility] (alcohol rehabilitation facility) for a medical clearance, and presented to [place] emergency room on 06/02/2017. 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 She drinks approximately 3-4 glasses of vodka, 5 times a week, and has been drinking for approximately 10 years. Reported last drink the night prior to the admission. She did not have any SI/HI. Other previous symptoms such as shortness of breath , chest pain, palpitations, urinary symptoms, head injury, loss of consciousness , abdominal symptoms were negative. At the time of admission, she was afebrile, tachycardic, respiration 18, blood pressure 155/98, saturating adequately on room air. She did not have any abnormality on examination, except some chemosis on left eye. In terms of her labs, she had macrocytosis, MCV 105.3, WBC 8.9, hemoglobin 13.9; she had severe anion gap metabolic acidosis-anion gap 38, bicarbonate 8, BUN 7, serum creatinine 0.6. Liver chemistries were slightly abnormal AST 98, ALT 70, alkaline phosphatase 110, lactate was 1.0. Urinalysis was positive for acetone. She was admitted to general medicine service, and was transferred to intensive care unit as per the evaluation of a transmission system operator for tx of "profound life treatening ketoacidosis" and for closer monitoring of electrolyte derangement secondary to chronic alcohol use resulting in alcoholic ketoacidosis. Allergies/Medications Allergies: Coded Allergies: No Known Allergies (06/01/17) Review of Systems Review of Systems Constitutional: Reports: see HPI. Past History Travel History Traveled to [place] past 21 day No Medical History Blood Transfusion Hx: No Psychiatric: alcohol dependence, anxiety, depression Surgical History Surgical History: non-contributory Psychosocial History Where Do You Live? Home Services at Home: None Smoking Status: Current Everyday Smoker ETOH Use: alcoholic Illicit Drug Use: denies illicit drug use Functional Ability ADLs Independent: dressing, eating, toileting, bathing. Ambulation: independent IADLs Independent: shopping, housework, finances, food prep, telephone, transportation , medication admin. Exam & Diagnostic Data Last 24 Hrs of Vital Signs/I&O Vital Signs Date Time Temp Pulse Resp B/P B/P Pulse O2 O2 Flow FiO2 Mean Ox Delivery Rate 06/03 0400 97.6 86 20 118/70 06/03 0400 97.6 86 20 118/70 98 Room Air 06/03 0000 98.1 88 15 110/70 06/02 2200 90 18 104/72 06/02 2000 98.1 90 20 126/70 06/02 1999 98 Room Air 06/02 1158 97.8 94 20 110/60 06/02 0800 Room Air Room Air Intake & Output 06/03 0800 06/03 0000 06/02 1600 Intake Total 2527 914 1770 Output Total 700 600 Balance 564 848 8142 Intake, IV 9740 696 3588 Intake, Oral 20 480 Output, Urine 700 600 Physical Exam Other Physical Findings: General Exam: AAOx3, No acute distress, Skin: No rashes, no breakdown HEENT: PERRLA, EOMI, left eye chemosis. Neck: Supple, No JVD No cervical lymphadenopathy CVS: Reg Rate, Normal S1,S2, No MGR Resp: Normal air entry, no ronchi/rales Abdomen: Soft, No tenderness, Normal Bowel Sounds Neuro: Normal Speech, Strength 5/5 b/l x 4 extremities, Sensation intact, CN III -XII NL, Reflexes 2+ Extremities: No cyanosis, pedal edema Full Body Anterior 1) left eye bulge Assessment/Plan Impression/Plan: Ms Hassan was sent from [facility] (alcohol rehabilitation facility) for a medical clearance, and presented to [place] emergency room on 06/02/2017, and is admitted to the ICU for the management of "profound life treatening ketoacidosis " and for closer monitoring of electrolyte derangement secondary to chronic alcohol use resulting in alcoholic ketoacidosis. She had ketoacidosis, with an anion gap of 38 which likely is from ketoacids which would be normalized once the patient receives a carbohydrate diet or iv dextose. She has a mixed picture of starvation ketoacidosis, and alcohol ketoacidosis with latter being more a predominant contributor. With alcohol ketoacidosis acidemia is much more prominent, but the treatment is usually with providing them with carbohydrate either intravenously or by mouth with a close watch on other electrolytes such as phosphorus, and inhibit production of acetyl CoA from free fatty acids. In her case, lack of insulin would've caused increased production of beta hydroxybutyrate, which could easily be tracked by serial acetone measurements, which I doubt is the case considering normal glucose levels in the last 12-18 hours. We can check check insulin glucagon ratio. Refeeding syndrome is also likely, for which she should be treated with po phosphates. Plan: #1 ketoacidosis- likely alcohol related. Could be treated with simple carbohydrate replenishment, or intravenous glucose with insulin support to help glycogen deposition in the liver and decrease free fatty acid production. - Continue intravenous dextrose. Euglycemic clamp, with insulin if needed. - Target glucose level to be kept in between 140-180. - Check insulin. - Can check duran 65 antibodies as an outpatient. - Serial electrolyte measurements including potassium, magnesium, phosphate. - Avoid refeeding syndrome in her. - Recheck acetone in a.m., that would guide therapy. Lactate within normal limits. #2 alcohol detox- - Monitoring as per CIWA - CIWA remained within 0-2 - Ativan as per CIWA intravenously - Ativan 2 mg by mouth every 6 scheduled - Taper Ativan as per CIWA. - Treat with thiamine to avoid encephalopathy. -Start vitamin B12, folate, multivitamin. - Social work has been consulted. Housekeeping - DVT prophylaxis-subcutaneous Lovenox - Diet-regular diet - Intravenous fluids-D5 half-normal - Catheters-none - Central line-none - CODE STATUS-full code Downgrade to general medicine service and electrolytes normalize, and bicarbonate improves. Consult Acknowledgment - Thank you for your consult request. Maye ARZATE,Leisa Gilliam 06/03/17 0904: General Information and HPI Consulting Request Date of Consult: 06/03/17 Requested By: Dr. Galvan Reason for Consult: CRCU management for metabolic acidosis. Source of Information: patient, old records Exam Limitations: no limitations Allergies/Medications Current Medications: Current Medications Sig/Henry Start time Last Medication Dose Route Stop Time Status Admin Dextrose/Sodium 1,000 ML Q10H 06/02 2345 AC 06/03 Chloride IV 0003 Dextrose/Water 1,000 ML .Q10H 06/02 1500 DC 06/02 IV 06/03 205 1504 Enoxaparin Sodium 40 MG DAILY 06/02 1000 AC 06/02 SC 0938 Folic Acid 1 MG DAILY 06/02 1000 AC 06/02 PO 0937 Ibuprofen 600 MG Q6 PRN 06/02 0515 AC PO Ketorolac 15 MG Q6P PRN 06/02 0515 AC Tromethamine IV Lactated Ringer's 1,000 ML Q6H 06/02 0330 DC 06/02 IV 06/02 1129 0844 Lorazepam 2 MG Q6 06/03 0900 AC PO Lorazepam 2 MG .STK-MED ONE 06/03 0026 DC PO 06/03 0027 Lorazepam 2 MG Q6 06/02 1200 DC 06/03 PO 06/03 0001 0026 Lorazepam 1 MG Q1P PRN 06/02 0630 AC IV Magnesium Sulfate 1 GM ONCE ONE 06/03 0900 AC Dextrose/Water 100 ML IV 06/03 1259 Multivitamins 1 TAB DAILY 06/02 1000 CAN PO Multivitamins 1 TAB DAILY 06/02 1000 AC 06/02 PO 0937 Nicotine 21 MG DAILY 06/01 1921 AC 06/02 TOP 0938 Omeprazole 40 MG DAILY AC 06/02 0700 AC 06/03 PO 0654 Ondansetron HCl 4 MG Q8P PRN 06/02 0515 AC IV Oxycodone/ 2 TAB Q6P PRN 06/02 0515 AC Acetaminophen PO Phosphate 250 MG ONCE ONE 06/02 2345 DC 06/03 PO 06/02 2346 0020 Phosphate 250 MG ONCE ONE 06/02 1845 DC 06/02 PO 06/02 1846 1855 Potassium Chloride 40 MEQ ONCE ONE 06/03 0900 DC PO 06/03 0901 Potassium Chloride 10 MEQ Q1H 06/02 2345 DC 06/03 IV 06/03 0046 0157 Potassium Phosphate 15 mMol ONE ONE 06/03 0900 AC Dextrose/Water 250 ML IV 06/03 1304 Potassium Phosphate 15 mMol ONE ONE 06/02 2345 CAN Dextrose/Water 250 ML IV 06/03 0349 Potassium Phosphate 15 mMol ONE ONE 06/02 1745 DC 06/02 Dextrose/Water 250 ML IV 06/02 2149 2113 Thiamine HCl 100 MG ONCE ONE 06/02 1845 DC 06/02 Sodium Chloride 50 ML IV 06/02 1944 2105 Thiamine HCl 200 MG Q4 06/02 0530 DC 06/02 PO 06/02 1001 0937 Exam & Diagnostic Data Last 24 Hrs of Vital Signs/I&O Vital Signs Date Time Temp Pulse Resp B/P B/P Pulse O2 O2 Flow FiO2 Mean Ox Delivery Rate 06/03 0400 97.6 86 20 118/70 06/03 0400 97.6 86 20 118/70 98 Room Air 06/03 0000 98.1 88 15 110/70 06/02 2200 90 18 104/72 06/02 1999 98.1 90 20 126/70 06/02 1999 98 Room Air 06/02 1158 97.8 94 20 110/60 Intake & Output 06/03 1600 06/03 0800 06/03 0000 Intake Total 1145 799 Output Total 700 600 Balance 445 199 Intake, IV 1125 799 Intake, Oral 20 Output, Urine 700 600 Last 48 Hrs of Labs/Wade: Laboratory Tests 06/03/17 0435: Sodium Cancelled, Potassium Cancelled, Chloride Cancelled, Carbon Dioxide Cancelled, Anion Gap Cancelled, BUN Cancelled, Creatinine Cancelled, BUN/ Creatinine Ratio Cancelled, Phosphorus Cancelled, Magnesium Cancelled 06/03/17 0435: Anion Gap 17 H, Estimated GFR > 60, Glucose 96, Calcium 8.4, Phosphorus 1.5 L, Magnesium 1.6, Total Bilirubin 0.7, AST 60 H, ALT 52, Albumin 3.4 L, CBC w Diff NO MAN DIFF REQ, RBC 3.24 L, MCV 104.1 H, MCH 35.2 H, RDW 15.3 H, MPV 9.1, Gran % 62.5, Lymphocytes % 20.8, Monocytes % 14.0 H, Eosinophils % 2.2, Basophils % 0.5, Absolute Granulocytes 3.1, Absolute Lymphocytes 1.0 L, Absolute Monocytes 0.7 H, Absolute Eosinophils 0.1, Absolute Basophils 0, PUBS MCHC 33.8 06/02/17 2250: Anion Gap 17 H, Estimated GFR > 60, Glucose 99, Calcium 8.5, Phosphorus 1.4 L, Magnesium 1.7, Total Bilirubin 0.7, AST 62 H, ALT 54 H, Albumin 3.4 L 06/02/17 1812: Anion Gap 19 H, Estimated GFR > 60, BUN/Creatinine Ratio 7.5 06/02/17 1720: pH 7.34 L, pCO2 21 L, pO2 92, HCO3 11 L, ABG O2 Sat (Measured) 96.0, P-50 ( Temp Corrected) Y, Carboxyhemoglobin 1.0 L, O2 Concentration % RA, Temperature 97.8, O2 Delivery Method RA, Phlebotomy Draw Site RIGHT RADIAL 06/02/17 1610: Anion Gap 19 H, Estimated GFR > 60, BUN/Creatinine Ratio 7.5, Phosphorus 1.0 L , Magnesium 1.8, Ethylene Glycol NEGATIVE, Methyl Alcohol, Quant NEGATIVE 06/02/17 1000: Sodium Cancelled, Potassium Cancelled, Chloride Cancelled, Carbon Dioxide Cancelled, Anion Gap Cancelled, BUN Cancelled, Creatinine Cancelled, Glucose Cancelled, Calcium Cancelled, Phosphorus Cancelled, Magnesium Cancelled, Total Bilirubin Cancelled, AST Cancelled, ALT Cancelled, Albumin Cancelled 06/02/17 0945: pH 7.28 *L, pCO2 20 L, pO2 134 H, HCO3 9 L, ABG O2 Sat (Measured) 97.0, P-50 (Temp Corrected) N, Carboxyhemoglobin 0.7 L, O2 Concentration % .21, O2 Delivery Method RA, Phlebotomy Draw Site LEFT RADIAL 06/02/17 0615: Anion Gap 24 H, Estimated GFR > 60, BUN/Creatinine Ratio 7.5, CBC w Diff NO MAN DIFF REQ, RBC 3.16 L, MCV 106.2 H, MCH 35.2 H, RDW 14.9 H, MPV 9.5, Gran % 79.3 H, Lymphocytes % 7.5 L, Monocytes % 12.9 H, Eosinophils % 0.2, Basophils % 0.1, Absolute Granulocytes 5.8, Absolute Lymphocytes 0.5 L, Absolute Monocytes 0.9 H, Absolute Eosinophils 0, Absolute Basophils 0, PUBS MCHC 33.2 06/02/17 0305: pH 7.21 *L, pCO2 16 L, pO2 125 H, HCO3 6.3 L, ABG O2 Sat (Measured) 97.0, P- 50 (Temp Corrected) Y, Carboxyhemoglobin 0.1 L, O2 Concentration % RA, Temperature 98.9, Phlebotomy Draw Site RIGHT RADIAL 06/02/17 0204: Lactic Acid 0.6 L 06/02/17 0204: Anion Gap 24 H, Estimated GFR > 60, BUN/Creatinine Ratio 7.5, Glucose 72, Calcium 7.2 L, Total Bilirubin 0.6, AST 59 H, ALT 52, Alkaline Phosphatase 74, Total Protein 6.4, Albumin 3.7, Globulin 2.7, Albumin/Globulin Ratio 1.4 06/01/17 2300: Lactic Acid 1.0 06/01/17 2105: Bicarbonate Actual 10 L, Mixed VBG pH 7.14 L, Mixed VBG pCO2 29 L, Mixed VBG O2 Saturation 42, Carboxyhemoglobin 1.4 L 06/01/171944: Urinalysis LIGHT H, Urine Color YEL, Urine Clarity CLEAR, Urine pH 6.0, Ur Specific [place] >= 1.030, Urine Protein 100 H, Urine Ketones >=80, Urine Nitrite NEG, Urine Bilirubin NEG@ICTO, Urine Urobilinogen 0.2, Ur Leukocyte Esterase NEG, Ur Microscopic SEDIMENT EXAMINED, Urine RBC RARE, Urine WBC RARE, Ur Epithelial Cells FEW, Urine Bacteria FEW H, Hyaline Casts RARE H, Urine Hemoglobin SMALL H, Urine Glucose NEG 06/01/171944: Urine Opiates Screen < 100.00, Methadone Screen < 40, Barbiturate Screen < 60, Ur Phencyclidine Scrn < 6.00, Amphetamines Screen 137, U Benzodiazepines Scrn < 85, Urine Cocaine Screen < 50, Urine Cannabis Screen < 5.00, Ur Random Creatinine 42.6, Ur Random Sodium 162 H, Ur Random Potassium 31.7, Fraction Sodium Excret 1.6 H 06/01/171908: Anion Gap 38 H, Estimated GFR > 60, BUN/Creatinine Ratio 11.7, Glucose 93, Serum Osmolality 309 H, Calcium 9.9, Phosphorus 3.9, Magnesium 2.1, Total Bilirubin 0.8, AST 98 H, ALT 70 H, Alkaline Phosphatase 110, Total Protein 9.8 H, Albumin 6.0 H, Globulin 3.8, Albumin/Globulin Ratio 1.6, Lipase 166, Vitamin B12 288, Folate 4.0, CBC w Diff NO MAN DIFF REQ, RBC 3.99 L, MCV 105.3 H, MCH 34.9 H, RDW 15.4 H, MPV 8.5, Gran % 83.2 H, Lymphocytes % 8.5 L, Monocytes % 8.0, Eosinophils % 0.1, Basophils % 0.2, Absolute Granulocytes 7.4 H, Absolute Lymphocytes 0.8 L, Absolute Monocytes 0.7 H, Absolute Eosinophils 0, Absolute Basophils 0, PUBS MCHC 33.1, Acetaminophen < 10.0 L, Serum Alcohol < 10.0, Acetone Level POSITIVE AT 1:16 DIL Assessment/Plan Other Findings/Comments: I have personally seen and examined the patient, and agree with the resident's assessment and plan as detailed above. Briefly, the patient is a 46 year old patient with a history of chronic ETOH abuse. She was sent from [facility] for detox clearance. She has been drinking several glasses of vodka per day and she has not been eating. She has also experienced several episodes of vomiting is no history of withdrawal seizures or history of DVTs. The patient was evaluated in the ED and found to have significant metabolic acidosis consistent with alcoholic ketoacidosis and starvation ketosis. She was given IV fluid resuscitation noting that her metabolic acidosis have significantly improved. Nephrology evaluated the patient and recommended glucose infusion as well as aggressive electrolyte repletion. The patient also received multivitamin, thiamine and folate. The patient is awake and alert and feels significantly improved. Her anion gap has improved from 38 to 17. Her potassium is 3.3 today. Phosphorus remains low at 1.5. Arterial blood gas has improved with treatment. The only complaint the patient offers today is feeling fatigued. Impression: 1. Severe metabolic acidosis secondary to alcohol ketosis and starvation ketosis, improved with fluid resuscitation. 2. Electrolyte abnormalities, improving with repletion. 3. Improving glucose levels. 4. History of EtOH withdrawal, but no history of seizures or DTs in the past. Plan: * Continue with IV fluid resuscitation. * Continue to monitor blood sugars. * Continue with aggressive electrolyte repletion. * Appreciate nephrology input, will follow recommendations. * Multivitamin, thiamine and folate to continue. * DVT prophylaxis at all times. * Continue all supportive care. * Monitor labs every 8 hours today. * Will downgrade to GEN med when laboratory studies have normalized. Consult Acknowledgment - Thank you for your consult request.
[2017-06-04 05:25] VITALS: BP 100/68
--- NOTE | 2017-06-04 07:25 | PN- Housestaff ---
Antoine ARZATE,Meghan 06/04/17 0724: Subjective Follow-up For: 1-ketoacidosis- likely alcohol related. 2-alcohol detox Subjective: Patient was seen and examined at bedside, she has no complaints, denies fever, chills, nausea, vomiting, shakes only report one loose bowel movement yesterday. CIWA score in the past 24 hours with maximum of 2, she didn't require any IV Ativan overnight, currently she is on PO Ativan 1.5 mg Q 6 , her potassium, phosphorus was low this morning and were repleted Review of Systems Constitutional: Denies: no symptoms. Cardiovascular: Denies: no symptoms. Respiratory: Denies: no symptoms. Gastrointestinal: Denies: no symptoms. Genitourinary: Denies: no symptoms. Objective Last 24 Hrs of Vital Signs/I&O Vital Signs Date Time Temp Pulse Resp B/P B/P Pulse O2 O2 Flow FiO2 Mean Ox Delivery Rate 06/04 0525 97.8 94 20 100/68 98 Room Air 06/03 2254 98.8 96 18 112/72 97 Room Air 06/03 2000 98.7 106 16 108/80 06/03 1800 96 20 106/72 06/03 1558 98.6 94 24 104/70 97 Room Air 06/03 1537 700 20 108/74 06/03 1400 90 20 95/74 06/03 1200 97.3 90 22 108/80 Intake & Output 06/04 1600 06/04 0800 06/04 0000 Intake Total 240 1320 Output Total 700 Balance 240 620 Intake, IV 500 Intake, Oral 240 820 Number 0 Bowel Movements Output, Urine 700 Physical Exam General Appearance: Alert, Oriented X3, Cooperative, No Acute Distress HEENT: Atraumatic, PERRLA, EOMI, Mucous Membr. moist/pink Cardiovascular: Normal S1, Normal S2, No Murmurs Lungs: Clear to Auscultation Abdomen: Normal Bowel Sounds, Soft, No Tenderness Extremities: No Clubbing, No Cyanosis, No Edema Assessment/Plan Assessment: 46-year-old lady with past medical history significant for optic disc tumor status post resection, alcohol abuse was sent in to the ER from [facility] for alcohol detox. Prior to admission the patient has not been eating or drinking for 2 days, frequent vomiting the day prior to admission, was admitted to the ICU for severe anion gap metabolic acidosis likely secondary to starvation/alcoholic ketoacidosis, and then transferred to general medicine floor after resolution of her AG acidosis #Alcohol detox -CIWA portocol CIWA in the last 24 hours was maximum 2 - Ativan as per CIWA intravenously(recent didn't require any IV Ativan overnight ) - start Ativan 1.5 mg by mouth every 6 scheduled, - Taper Ativan as per CIWA. -thiamine, vitamin B12, folate - Intravenous fluids-D5 half-normal -Close monitoring of potassium, phosphorus, magnesium and replete accordingly - Social consult appreciated -Psych consult appreciated #Ketoacidosis resolved likely alcohol related Vs starvation ketosis Methanol and ethylene glycol was were negative - Check insulin. - Can check duran 65 antibodies as an outpatient. - Serial electrolyte measurements including potassium, magnesium, phosphate. - will watch for refeeding syndrome DVT prophylaxis:subcutaneous Lovenox regular diet full code Problem List: 1. Alcohol withdrawal 2. Metabolic acidosis with increased anion gap and accumulation of organic acids Pain Ratin Pain Location: N/A Pain Goal: Remain pain free Pain Plan: per pathway Tomorrow's Labs & Rationales: cbc bep phosph mag DVT/Prophylaxis: mechanical, pharmacological Jumana Hernadez MD 06/04/17 1541: Attending MD Review Statement Attending Statement Attending MD Statement: examined this patient, discuss w/resident/PA/HSE COORDINATOR, agreed w/resident/PA/HSE COORDINATOR, reviewed EMR data (avail) Attending Assessment/Plan: 46F PMH EtOH abuse admitted initially to ICU with severe metabolic acidosis with alcoholic/starvation ketosis, hypokalemia, hypomagnesemia, hypophosphatemia, severe dehydration, and alcohol withdrawal due to alcohol abuse and not eating. Improved with IV hydration and electrolyte replacement. Doing well today, no signs of withdrawal, labs improving. Plan - Continue on general medicine - Replete electrolytes - Ativan taper - IV hydration - Speech Correction Consultant consult - DVT PPx
[2017-06-04 09:03] LABS: ABSOLUTE BASOPHIL COUNT 0 /CUMM (0.0-0.2); ABSOLUTE EOSINOPHIL COUNT 0.1 /CUMM (0.0-0.7); ABSOLUTE GRANULOCYTE CT 2.5 /CUMM (1.4-6.5); ABSOLUTE LYMPH COUNT 1.1 /CUMM (1.2-3.4); ABSOLUTE MONOCYTE COUNT 0.7 /CUMM (0.10-0.60); BASOPHIL % 0.5 % (0.0-2.0); EOSINOPHIL % 1.9 % (0-5); GRANULOCYTE % 57.8 % (42.2-75.2); HEMATOCRIT 32.8 % (37-47); MEAN CORPUSCULAR HGB 35.6 PG (27.0-31.0); MEAN CORPUSCULAR HGB CONC 34.2 G/DL (33.0-37.0); MEAN CORPUSCULAR VOLUME 104.2 FL (81.0-99.0); MEAN PLATELET VOLUME 9.4 FL (7.4-10.4); PLATELET COUNT 126 /CUMM (130-400); RBC DISTRIBUTION WIDTH 15.3 % (11.5-14.5); RED BLOOD CELL CT 3.15 /CUMM (4.20-5.40); WHITE BLOOD CELL COUNT 4.3 /CUMM (4.8-10.8)
[2017-06-04 14:16] VITALS: BP 140/92
[2017-06-04 18:00] VITALS: BP 128/82
[2017-06-04 22:30] VITALS: BP 118/80
--- NOTE | 2017-06-05 07:11 | PN- Housestaff ---
Antoine ARZATE,Meghan 06/05/17 0711: Subjective Follow-up For: 1-ketoacidosis- likely alcohol related. 2-alcohol detox Subjective: Patient was seen and examined at bedside, she has no complaints, denies fever, chills, nausea, vomiting, shakes . CIWA score in the past 24 hours with maximum of 3, she didn't require any IV Ativan overnight, currently she is on PO Ativan 1.5 mg Q 6 Review of Systems Constitutional: Denies: no symptoms. Respiratory: Denies: no symptoms. Gastrointestinal: Denies: no symptoms. Genitourinary: Denies: no symptoms. Musculoskeletal: Denies: no symptoms. Objective Last 24 Hrs of Vital Signs/I&O Vital Signs Date Time Temp Pulse Resp B/P B/P Pulse O2 O2 Flow FiO2 Mean Ox Delivery Rate 06/06 0600 98.0 87 20 98/76 98 06/05 2230 98.7 96 20 106/70 97 Room Air 06/05 1547 98.6 97 20 114/90 97 Room Air Intake & Output 06/06 1600 06/06 0800 06/06 0000 Intake Total 100 600 Output Total Balance 100 600 Intake, IV 0 Intake, Oral 100 600 Number 0 Bowel Movements Physical Exam General Appearance: Alert, Oriented X3, Cooperative, No Acute Distress HEENT: Atraumatic, PERRLA, EOMI, Mucous Membr. moist/pink Cardiovascular: Normal S1, Normal S2, No Murmurs Lungs: Clear to Auscultation Abdomen: Normal Bowel Sounds, Soft, No Tenderness Neurological: Normal Speech, Strength at 5/5 X4 Ext, Normal Tone Extremities: No Clubbing, No Cyanosis, No Edema Vascular: Normal Pulses Assessment/Plan Assessment: 46-year-old lady with past medical history significant for optic disc tumor status post resection, alcohol abuse was sent in to the ER from [facility] for alcohol detox. Prior to admission the patient has not been eating or drinking for 2 days, frequent vomiting the day prior to admission, was admitted to the ICU for severe anion gap metabolic acidosis likely secondary to starvation/alcoholic ketoacidosis, and then transferred to general medicine floor after resolution of her AG acidosis #Alcohol detox -CIWA portocol CIWA in the last 24 hours was maximum 2 - Ativan as per CIWA intravenously(recent didn't require any IV Ativan overnight ) - start Ativan 1 mg by mouth every 8 scheduled, - Taper Ativan as per CIWA. -thiamine, vitamin B12, folate -Close monitoring of potassium, K phosphorus, magnesium and replete accordingly - Social consult appreciated -Psych consult appreciated Hypokalemia: K was running low , repleted , will recheck BEp at 5 PM and replet K if needed #Ketoacidosis resolved likely alcohol related Vs starvation ketosis Methanol and ethylene glycol was were negative - will watch for refeeding syndrome DVT prophylaxis:subcutaneous Lovenox regular diet full code Problem List: 1. Alcohol withdrawal Pain Ratin Pain Location: N/A Pain Goal: Remain pain free Pain Plan: pathway Tomorrow's Labs & Rationales: CBC BEP MG Phosph DVT/Prophylaxis: mechanical, pharmacological Khari Gutierrez MD 06/05/17 1727: Attending MD Review Statement Attending Statement Attending MD Statement: examined this patient, discuss w/resident/PA/MECHANICAL MANUFACTURING ENGINEER, agreed w/resident/PA/MECHANICAL MANUFACTURING ENGINEER, reviewed EMR data (avail), discussed with case mgmt, amended to note Attending Assessment/Plan: The patient was seen and discussed with house staff. Agree with plan of care as outlined. Patient was lethargic in morning and better at present. Continue Ativan taper with plan to transfer to [facility] when stable. Will monitor electrolytes. Patient states diarrhea improved. Note- diarrhea most likely due to Neutra-Phos. If more repletion needed best to do IV.
[2017-06-05 07:13] VITALS: BP 120/64
[2017-06-05 08:20] LABS: ABSOLUTE BASOPHIL COUNT 0 /CUMM (0.0-0.2); ABSOLUTE EOSINOPHIL COUNT 0.1 /CUMM (0.0-0.7); ABSOLUTE GRANULOCYTE CT 2.8 /CUMM (1.4-6.5); ABSOLUTE MONOCYTE COUNT 0.7 /CUMM (0.10-0.60); BASOPHIL % 0.8 % (0.0-2.0); EOSINOPHIL % 1.7 % (0-5); GRANULOCYTE % 60.3 % (42.2-75.2); HEMATOCRIT 31.5 % (37-47); MEAN CORPUSCULAR HGB CONC 33.5 G/DL (33.0-37.0); MEAN CORPUSCULAR VOLUME 104.5 FL (81.0-99.0); MEAN PLATELET VOLUME 9.1 FL (7.4-10.4); RBC DISTRIBUTION WIDTH 15.4 % (11.5-14.5); RED BLOOD CELL CT 3.02 /CUMM (4.20-5.40)
[2017-06-05 09:49] LABS: PLATELET COUNT 136 /CUMM (130-400); WHITE BLOOD CELL COUNT 4.6 /CUMM (4.8-10.8)
[2017-06-05] MEDS ORDERED: FOLIC ACID1 M1 PO (11:54)
[2017-06-05] MEDS ORDERED: NICOTINE PATCH1 EAC3 TOP (11:54)
[2017-06-05] MEDS ORDERED: ONE DAILY MULT1 EAC2 PO (11:54)
--- NOTE | 2017-06-05 11:56 | Patient Discharge Instructions ---
Discharge Instructions General Discharge Information You were seen/treated for: 1-Anion gap metabolic acidosis 2-alcohol withdrawal Special Instructions: 1please follow-up with your PCP in 1 week of discharge 2please refrain from using alcohol Diet Continue normal diet: Yes Activity Full Activity/No Limits: Yes Acute Coronary Syndrome Inclusion Criteria At DC or during hospital stay patient has or had the following: ACS DIAGNOSIS No Discharge Core Measures Meds if any: Prescribed or Continued at Discharge Meds if any: NOT Prescribed or Continued at Discharge Congestive Heart Failure Inclusion Criteria At DC or during hospital stay patient has or had the following: CHF DIAGNOSIS No Discharge Core Measures Meds if any: Prescribed or Continued at Discharge Meds if any: NOT Prescribed or Continued at Discharge Cerebrovascular accident Inclusion Criteria At DC or during hospital stay patient has or had the following: CVA/TIA Diagnosis No Discharge Core Measures Meds if any: Prescribed or Continued at Discharge Meds if any: NOT Prescribed or Continued at Discharge Venous thromboembolism Inclusion Criteria VTE Diagnosis No VTE Type NONE VTE Confirmed by (Test) NONE Discharge Core Measures - Per Current guidelines, there needs to be overlap - treatment for the first 5 days of Warfarin therapy. - If discharged on Warfarin prior to 5 days of - overlap therapy, the patient will need to be - assessed for post discharge needs including - *Post discharge parental anticoagulation - *Warfarin and/or parental anticoagulation education - *Follow up date to check INR post discharge At least 5 days overlap therapy as Inpatient No Meds if any: Prescribed or Continued at Discharge Note: Overlap Therapy is Warfarin and Anticoagulant Meds if any: NOT Prescribed or Continued at Discharge
[2017-06-05 15:47] VITALS: BP 114/90
--- NOTE | 2017-06-05 17:03 | Cons- Psychiatry ---
Psychiatric Consult Date of Consult: 06/05/17 Reason for Consult: anxiety History of Present Illness: 46 F sent by [facility] for alcohol detox on 06/01/17 @ 1741, arriving with her brother and her friend. The patient was originally admitted to telemetry for evaluation and treatment of anion gap metabolic acidosis, thought to be related to starvation, later identified as alcoholic ketoacidosis, due to poor PO intake. Other problems included macrocytic anemia, history of peptic ulcer and alcohol use disorder, severe. She was subsequently transferred to the ICU on the recommendation of nephrology. She has received high dose thiamine, multivitamins and folic acid. The lorazepam detox taper has proceeded, and she is now on lorazepam 1 mg PO every 6 hours with as needed lorazepam dosing, per [facility] protocol. Allergies: Coded Allergies: No Known Allergies (06/01/17) Current Medications: Current Medications Sig/Henry Start time Last Medication Dose Route Stop Time Status Admin Alprazolam 0.25 MG ONCE ONE 06/04 221 DC 06/04 PO 06/04 2215 223 Dextrose/Sodium 1,000 ML Q10H 06/02 2345 DC 06/05 Chloride IV 1155 Enoxaparin Sodium 40 MG DAILY 06/02 1000 AC 06/05 SC 1002 Folic Acid 1 MG DAILY 06/02 1000 AC 06/05 PO 1002 Ibuprofen 600 MG Q6 PRN 06/02 0515 AC PO Ketorolac 15 MG Q6P PRN 06/02 0515 AC Tromethamine IV Lorazepam 1 MG Q8 06/05 2000 AC PO Lorazepam 1 MG Q6 06/05 1800 DC PO Lorazepam 1.5 MG Q6 06/04 0600 DC 06/05 PO 1150 Lorazepam 1 MG Q1P PRN 06/02 0630 AC IV Multivitamins 1 TAB DAILY 06/02 1000 AC 06/05 PO 1002 Nicotine 21 MG DAILY 06/01 1921 AC 06/05 TOP 1002 Omeprazole 40 MG DAILY AC 06/02 0700 AC 06/05 PO 0516 Ondansetron HCl 4 MG Q8P PRN 06/02 0515 AC IV Oxycodone/ 2 TAB Q6P PRN 06/02 0515 AC Acetaminophen PO Phosphate 250 MG ONCE ONE 06/05 0930 DC 06/05 PO 06/05 0931 1002 Phosphate 250 MG PC AND AT BEDTIME 06/03 1800 DC 06/04 PO 06/04 Potassium Chloride 80 MEQ ONCE ONE 06/05 929 DC 06/05 PO 06/05 0931 1003 Past History Past Medical History Psychiatric: alcohol dependence, anxiety, depression Past Surgical History Surgical History: non-contributory Psychosocial History Strengths/Capabilities: Supportive family, by report Physical Limitations (Interventions): Unknown Psychiatric Treatment History Psych Treatment Psychiatric Treatment No (Unknown) Diagnosis: Alcohol use disorder, severe Risk Factors: substance abuse Substance Use/Abuse History Drug Use/Abuse Substances Used/Abused Yes Substance Used/Abused Alcohol First Use Unknown 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 She denies SI or HI. The patient was unwilling to participate further in this interview. Lab Results: Laboratory Tests 06/05 0726 Chemistry Sodium (137 - 145 mmol/L) 142 Potassium (3.5 - 5.1 mmol/L) 2.9 *L Chloride (98 - 107 mmol/L) 105 Carbon Dioxide (22 - 30 mmol/L) 24 Anion Gap (5 - 16) 13 BUN (7 - 17 mg/dL) < 2 L Creatinine (0.5 - 1.0 mg/dL) 0.3 L Estimated GFR (>60 ml/min) > 60 BUN/Creatinine Ratio (7 - 25 %) 6.7 L Phosphorus (2.5 - 4.5 mg/dL) 2.3 L Magnesium (1.6 - 2.3 mg/dL) 1.6 Total Bilirubin (0.2 - 1.3 mg/dL) 0.4 Direct Bilirubin (< 0.4 mg/dL) 0.3 AST (14 - 36 U/L) 70 H ALT (9 - 52 U/L) 59 H Alkaline Phosphatase (<127 U/L) 65 Total Protein (6.3 - 8.2 g/dL) 5.5 L Albumin (3.5 - 5.0 g/dL) 2.9 L Hematology CBC w Diff NO MAN DIFF REQ WBC (4.8 - 10.8 /CUMM) 4.6 L RBC (4.20 - 5.40 /CUMM) 3.02 L Hgb (12.0 - 16.0 G/DL) 10.6 L Hct (37 - 47 %) 31.5 L MCV (81.0 - 99.0 FL) 104.5 H MCH (27.0 - 31.0 PG) 35.0 H RDW (11.5 - 14.5 %) 15.4 H Plt Count (130 - 400 /CUMM) 136 MPV (7.4 - 10.4 FL) 9.1 Gran % (42.2 - 75.2 %) 60.3 Lymphocytes % (20.5 - 51.1 %) 21.2 Monocytes % (1.7 - 9.3 %) 16.0 H Eosinophils % (0 - 5 %) 1.7 Basophils % (0.0 - 2.0 %) 0.8 Absolute Granulocytes (1.4 - 6.5 /CUMM) 2.8 Absolute Lymphocytes (1.2 - 3.4 /CUMM) 1.0 L Absolute Monocytes (0.10 - 0.60 /CUMM) 0.7 H Absolute Eosinophils (0.0 - 0.7 /CUMM) 0.1 Absolute Basophils (0.0 - 0.2 /CUMM) 0 PUBS MCHC (33.0 - 37.0 G/DL) 33.5 Diffential Diagnosis: Alcohol use disorder, severe Substance-induced mood disorder, NOS Impression: The patient did not wish to participate in an interview, but agreed to answer a few questions regarding her mental status. I understand from nursing that she was upset and had wanted to escape from the hospital to smoke a cigarette, and is now on a nicotine patch and a bed alarm. I offered to return tomorrow to visit her, but there may not be much for us to offer, as her lorazepam taper is nearing the end. CIWA 06/05/17 @ 1200 4-3-8-5-3-9-1-7-8-0-0-0-0- VS 06/05/17 @ 0713 120/64, 97, 97.3, 18, 97%RA Labs reviewed for 06/05/17 @ 0703: Potassium 2.9L, BUN < 2/Creatinine 0.3L, phosphorous 2.3L, magnesium 1.6, AST 70H, ALT 59H, protein stores low As of 1540 today: She has received lorazepam 4.5 mg PO scheduled, with no as needed doses administered. She denies any history of seizure at admission. She denied any history of ICU alcohol detox, as well. She will transfer to [facility] for alcohol rehab when she is medically clear, and has safely finished her lorazepam taper. Provisional Treatment Plan: 1. Continue ETOH Detox lorazepam taper protocol with CIWA monitoring. The patient hs just finished 24 hours of treatment totalling 4.5 mg. The next step, per protocol, and slightly accelerated, due to her good progress, would be: a. Lorazepam 1 mg PO every 8 hours for 3 doses, then b. Lorazepam 0.5 mg PO every 6 hours for 4 doses, then c. Lorazepam 0.5 mg PO every 12 hours for 2 doses, then stop 2. If the patient decides that she wants to leave [place], and if she is not suicidal, delirious, nor psychotic, then housestaff should document that she verbalizes understanding that if she leaves before treatment is finished, she will be at risk for seizure and possibly , and that she will not be given any benzodiazepines at discharge. 3. When lorazepam taper is complete, confirm transfer, voluntarily, and likely by family members, to [facility]. 4. Consider restarting thiamine 50-100 mg PO daily. We will try to see the patient on 06/06/17 to complete our evaluation.
[2017-06-05 22:30] VITALS: BP 106/70
[2017-06-06 06:00] VITALS: BP 98/76
--- NOTE | 2017-06-06 07:15 | PN- Housestaff ---
Antoine ARZATE,Meghan 06/06/17 0715: Subjective Follow-up For: 2-alcohol detox Subjective: Patient was seen and examined at bedside, she denies any complaint, she looks depressed and in tears, ask when she will be able to go home, Nexium 0 squamous surgery in the past 24 hours, still an Ativan taper currently on 0.5 Q 6,, did not require any IV Ativan in the last 24 hours Review of Systems Constitutional: Denies: no symptoms. Cardiovascular: Denies: no symptoms. Respiratory: Denies: no symptoms. Gastrointestinal: Denies: no symptoms. Genitourinary: Denies: no symptoms. Musculoskeletal: Denies: no symptoms. Skin: Denies: no symptoms. Objective Last 24 Hrs of Vital Signs/I&O Vital Signs Date Time Temp Pulse Resp B/P B/P Pulse O2 O2 Flow FiO2 Mean Ox Delivery Rate 06/06 0600 98.0 87 20 98/76 98 06/05 2230 98.7 96 20 106/70 97 Room Air 06/05 1547 98.6 97 20 114/90 97 Room Air Intake & Output 06/06 1600 06/06 0800 06/06 0000 Intake Total 100 600 Output Total Balance 100 600 Intake, IV 0 Intake, Oral 100 600 Number 0 Bowel Movements Physical Exam General Appearance: Alert, Oriented X3, Cooperative, No Acute Distress HEENT: Atraumatic, PERRLA, EOMI, Mucous Membr. moist/pink Neck: Supple, No JVD Cardiovascular: Normal S1, Normal S2, No Murmurs Lungs: Clear to Auscultation Abdomen: Normal Bowel Sounds, Soft, No Tenderness Neurological: Normal Speech, Strength at 5/5 X4 Ext, Normal Tone Extremities: No Clubbing, No Cyanosis, No Edema Vascular: Normal Pulses Assessment/Plan Assessment: 46-year-old lady with past medical history significant for optic disc tumor status post resection, alcohol abuse was sent in to the ER from [facility] for alcohol detox. Prior to admission the patient has not been eating or drinking for 2 days, frequent vomiting the day prior to admission, #Alcohol detox -CIWA portocol CIWA in the last 24 hours was maximum 3. -IV Ativan when necessary (patient didn't require any IV Ativan over the past 24 hours) - Continue Ativan taper, currently is on 0.5 every 6 -thiamine, vitamin B12, folate -Close monitoring of potassium, phosphorus, magnesium and replete accordingly - Follow up on psych recommendation #Ketoacidosis resolved likely alcohol related Vs starvation ketosis Methanol and ethylene glycol was were negative Fingerstick glucose are normal which rule out DKA DVT prophylaxis:subcutaneous Lovenox regular diet full code Problem List: 1. Alcohol withdrawal Pain Ratin Pain Location: N/A Pain Goal: Remain pain free Pain Plan: pain pathway Tomorrow's Labs & Rationales: cbc bep Mg Phosph DVT/Prophylaxis: mechanical, pharmacological Jumana Hernadez MD 06/06/17 1241: Attending MD Review Statement Attending Statement Attending MD Statement: examined this patient, discuss w/resident/PA/FITTING ROOM ATTENDANT, agreed w/resident/PA/FITTING ROOM ATTENDANT, reviewed EMR data (avail) Attending Assessment/Plan: 46F PMH EtOH abuse admitted initially to ICU with severe metabolic acidosis with alcoholic/starvation ketosis, hypokalemia, hypomagnesemia, hypophosphatemia, severe dehydration, and alcohol withdrawal due to alcohol abuse and not eating. Improved with IV hydration and electrolyte replacement. Doing well today, no signs of withdrawal, labs improving. Plan - Continue on general medicine - Replete electrolytes - Ativan taper, 0.5mg BID today, followed by once tomorrow, then stop - Contracting Engineer consult - DVT PPx - Anticipated discharge to [facility] tomorrow. Please send CMR to pharmacy for review.
[2017-06-06 08:23] LABS: ABSOLUTE BASOPHIL COUNT 0 /CUMM (0.0-0.2); ABSOLUTE EOSINOPHIL COUNT 0.1 /CUMM (0.0-0.7); ABSOLUTE GRANULOCYTE CT 2.5 /CUMM (1.4-6.5); ABSOLUTE LYMPH COUNT 1.2 /CUMM (1.2-3.4); ABSOLUTE MONOCYTE COUNT 0.9 /CUMM (0.10-0.60); BASOPHIL % 0.7 % (0.0-2.0); EOSINOPHIL % 2.3 % (0-5); GRANULOCYTE % 52.9 % (42.2-75.2); MEAN CORPUSCULAR HGB 35.2 PG (27.0-31.0); MEAN CORPUSCULAR HGB CONC 33.5 G/DL (33.0-37.0); MEAN CORPUSCULAR VOLUME 105.3 FL (81.0-99.0); MEAN PLATELET VOLUME 9.2 FL (7.4-10.4); PLATELET COUNT 152 /CUMM (130-400); RBC DISTRIBUTION WIDTH 15.8 % (11.5-14.5); RED BLOOD CELL CT 3.13 /CUMM (4.20-5.40); WHITE BLOOD CELL COUNT 4.7 /CUMM (4.8-10.8)
--- NOTE | 2017-06-06 09:16 | Discharge Summary ---
Visit Information Visit Dates Admission Date: 06/02/17 Discharge Date: 06/07/17 Hospital Course Course Attending Physician: Jumana Hernadez MD Primary Care Physician: Gamaliel Newton DO Hospital Course: 46-year-old lady with past medical history significant for optic disc tumor status post resection, alcohol abuse and insight was sent in to the ER from [email or web address] for alcohol detox. According to the patient, she was sent to [email or web address] by her family for detox, but was sent to the [place] ER for clearance.States she drinks 4-5 days per week , usually 3 glasses of vodka per day, her last drink was 2 glasses of Vodka per night before admission. She reports having vomiting starting 2 days ago because of increased anxiety, had 3 episodes of vomiting before admission, but denies any blood in the vomitus. Also has not been eating for the past 2 days #Anion gap metabolic acidosis; likely secondary to starvation ketosis. Patient had a pH of 7.21, an AG of 38 with a serum osmolar gap of 21, serum glucose level of 92, positive serum acetone levels, BUN of 7 and lactic acid level of 0.6. Serum toxicology screen was negative. In addition ethylene glycol and methanol were negative. Patient was admitted to the ICU where she was treated with IV glucose with insulin. She was monitored closely for refeeding syndrome, her electrolytes were closely monitored and repleted. #Alcohol detox She was monitored with CIWA score, was treated with IV Ativan when necessary, by mouth Ativan taper, vitamin B12, folate, thiamine. DVT prophylaxis:subcutaneous Lovenox regular diet full code Allergies: Coded Allergies: No Known Allergies (06/01/17) Disposition Summary Disposition Principal Diagnosis: Alcohol detox Additional Diagnosis: Anion gap metabolic acidosis- resolved Discharge Disposition: home or self care Discharge Instructions General Discharge Information Code Status: Full Code Patient's Diet: Regular diet Patient's Activity: As tolerated Follow-Up Instructions/Appts: 1please follow-up with your PCP in 1 week of discharge 2please refrain from using alcohol Medications at Discharge Discharge Medications: Start taking the following new medications: Nicotine (Nicotine Patch) 21 MG/24 HOUR PATCH.TD24 21 Milligram On the skin DAILY Qty = 30 No Refills Instructions: . Comments: Last Taken: Time:10:25 AM Omeprazole (Omeprazole) 20 MG CAPSULE.DR 40 Milligram ORAL DAILY BEFORE BREAKFAST Qty = 30 No Refills Instructions: . Comments: Last Taken:06/07/17 Time:4:53 AM Folic Acid (Folic Acid) 1 MG TABLET 1 Milligram ORAL DAILY Qty = 30 No Refills Instructions: . Comments: Last Taken:06/07/17 Time:10:24 AM Thiamine HCl (Vitamin B-1) 50 MG TABLET 50 Milligram ORAL DAILY Qty = 30 No Refills Instructions: . Comments: Last Taken:06/07/17 Time:10:25 AM Multivitamin (One Daily Multivitamin) 1 EACH TABLET 1 Tablet ORAL DAILY Qty = 30 No Refills Instructions: . Comments: Last Taken:06/07/17 Time:10:24 AM Copies To: Gamaliel Newton DO
[2017-06-06 15:40] VITALS: BP 126/90
[2017-06-06 22:16] VITALS: BP 134/80
[2017-06-07 06:46] VITALS: BP 130/68
--- NOTE | 2017-06-07 07:18 | PN- Housestaff ---
Antoine ARZATE,Meghan 06/07/17 0718: Subjective Follow-up For: alcohol detox Subjective: Patient was seen and examined at bedside, she denies any complaint, CIWA 0, last dose of Ativan this morning, denies any complaints Review of Systems Constitutional: Denies: no symptoms. Objective Last 24 Hrs of Vital Signs/I&O Vital Signs Date Time Temp Pulse Resp B/P B/P Pulse O2 O2 Flow FiO2 Mean Ox Delivery Rate 06/07 0800 98.0 88 20 130/68 06/07 0646 98.0 88 20 130/68 99 06/06 2216 98.2 104 20 134/80 99 Room Air Intake & Output 06/07 1600 06/07 0800 06/07 0000 Intake Total 480 480 Output Total Balance 480 480 Intake, Oral 480 480 Number 0 Bowel Movements Physical Exam General Appearance: Alert, Oriented X3, Cooperative, No Acute Distress HEENT: Atraumatic, PERRLA, EOMI, Mucous Membr. moist/pink Cardiovascular: Normal S1, Normal S2, No Murmurs Lungs: Clear to Auscultation Abdomen: Normal Bowel Sounds, Soft, No Tenderness Extremities: No Clubbing, No Cyanosis, No Edema Assessment/Plan Assessment: 46-year-old lady with past medical history significant for optic disc tumor status post resection, alcohol abuse was sent in to the ER from [facility] for alcohol detox. Prior to admission the patient has not been eating or drinking for 2 days, frequent vomiting the day prior to admission, #Alcohol detox -CIWA portocol CIWA in the last 24 hours was maximum 0 -IV Ativan when necessary (patient didn't require any IV Ativan over the past 24 hours) - We will finish Ativan taper this morning -thiamine, vitamin B12, folate -Close monitoring of potassium, phosphorus, magnesium and replete accordingly - Follow up on psych recommendation #Ketoacidosis resolved likely alcohol related Vs starvation ketosis Methanol and ethylene glycol was were negative Fingerstick glucose are normal which rule out DKA Patient is a stable to be discharged today DVT prophylaxis:subcutaneous Lovenox regular diet full code Problem List: 1. Alcohol withdrawal Pain Ratin Pain Location: N/A Pain Goal: Remain pain free Pain Plan: pathway Tomorrow's Labs & Rationales: none Jumana Hernadez MD 06/07/17 1152: Attending MD Review Statement Attending Statement Attending MD Statement: examined this patient, discuss w/resident/PA/ETHICAL HACKER, agreed w/resident/PA/ETHICAL HACKER, reviewed EMR data (avail) Attending Assessment/Plan: 46F PMH EtOH abuse admitted initially to ICU with severe metabolic acidosis with alcoholic/starvation ketosis, hypokalemia, hypomagnesemia, hypophosphatemia, severe dehydration, and alcohol withdrawal due to alcohol abuse and not eating. Improved with IV hydration and electrolyte replacement. Doing well today, no signs of withdrawal, labs improving. Plan - Stable for discharge to [facility] - No further Ativan required - Continue vitamin supplementation and PPI
[2017-06-07 08:00] VITALS: BP 130/68
[2017-06-07] MEDS ORDERED: OMEPRAZOLE20 M2 PO ×2 (08:58→11:39)
[2017-06-07] MEDS ORDERED: VITAMIN B-150 M1 PO ×2 (08:58→11:39)
[2017-06-07] MEDS ORDERED: NICOTINE PATCH1 EAC3 TOP (11:39)
[2017-06-07] MEDS ORDERED: FOLIC ACID1 M1 PO (11:39)
[2017-06-07] MEDS ORDERED: ONE DAILY MULT1 EAC2 PO (11:39)
== END 2017-06-07 13:27 | DRG 423 ==
LOC: ERH 17:35 → CRI 06-02 03:20 → 2NB 06-02 03:20 → ERHI 06-02 03:20 → ENRESERV 06-02 04:32 → 1NO 06-02 05:11 → CRI 06-02 18:01 → 2NB 06-03 20:40 → ENPENDDIS 06-07 11:09 → 2NB 06-07 13:27
PROVIDERS: Internal Medicine Endocrinology, Diabetes & Metabolism; Physician Assistant; Radiology Vascular & Interventional Radiology; Student in an Organized Health Care Education/Training Program
DX: E88.89 Other specified metabolic disorders (principal); E87.2 Acidosis; F10.239 Alcohol dependence with withdrawal, unspecified; D53.9 Nutritional anemia, unspecified; R74.0 Nonspecific elevation of levels of transaminase and lactic acid dehydrogenase [LDH]; F17.200 Nicotine dependence, unspecified, uncomplicated; E87.5 Hyperkalemia; E87.6 Hypokalemia; T73.0XXA Starvation, initial encounter; X58.XXXA Exposure to other specified factors, initial encounter; Z87.11 Personal history of peptic ulcer disease; F41.9 Anxiety disorder, unspecified; F32.9 Major depressive disorder, single episode, unspecified; F19.10 Other psychoactive substance abuse, uncomplicated; E86.0 Dehydration; F17.210 Nicotine dependence, cigarettes, uncomplicated
CPT/HCPCS: 2NBP; 2NBSP; 84133; 84300; CCU; 36415; 80307; 81001; 82436; 82570; 83525; 84600; 93005; 93010; 96361; 96374; 99291; G0480; J1650; J2405; J3490; J7042; J7120